=== PATIENT | female | born 1990 | race Caucasian/White ===

== ENCOUNTER 2021-04-10 08:00 | Outpatient (CLI) | payer MEDICAID ==
[2021-04-10 20:54] LABS: BASOPHILS % (AUTO) 0.3 %; EOSINOPHILS # (AUTO) 0.2 10^3/uL (0.0-0.7); EOSINOPHILS % (AUTO) 2.7 %; HCT - HEMATOCRIT 44.1 % (37.0-47.0); HGB - HEMOGLOBIN 14.1 g/dL (12.0-16.0); LYMPHOCYTES # (AUTO) 2.7 10^3/uL (1.5-3.5); LYMPHOCYTES % (AUTO) 33.8 %; MEAN CORPUSCULAR HEMOGLOBIN 28.3 pg (27.0-31.0); MEAN CORPUSCULAR VOLUME 88.6 fL (81.0-99.0); MEAN PLATELET VOLUME 10.6 fL (7.9-10.8); MONOCYTES # (AUTO) 0.5 10^3/uL (0.0-1.0); MONOCYTES % (AUTO) 6.6 %; NEUTROPHILS # (AUTO) 4.4 10^3/uL (1.5-6.6); NEUTROPHILS % (AUTO) 56.3 %; PLT - PLATELET COUNT 303 10^3/uL (130-450); RED BLOOD COUNT 4.98 10^6/uL (4.20-5.40); RED CELL DISTRIBUTION WIDTH 13.4 % (12.0-15.0); WHITE BLOOD COUNT 7.8 x10^3/uL (4.8-10.8)
[2021-04-10 21:13] LABS: ALBUMIN 4.1 g/dL (3.2-5.5); ALBUMIN/GLOBULIN RATIO 1.4 (1.0-2.2); BILIRUBIN,TOTAL 0.6 mg/dL (0.2-1.0); CALCIUM 9.1 mg/dL (8.5-10.3); CREATININE 0.8 mg/dL (0.4-1.0); POTASSIUM 4.1 mmol/L (3.5-5.0)
[2021-04-10 21:29] LABS: THYROID STIMULATING HORMONE 1.53 uIU/mL (0.34-5.60)
== END 2021-04-10 23:59 ==
LOC: LAB.N 08:00
PROVIDERS: ATTEND Family Medicine
DX: R20.2 Paresthesia of skin (principal)
CPT/HCPCS: 36415; 80053; 84443; 85025

== ENCOUNTER 2021-05-04 14:23 | Outpatient (CLI) | payer MEDICAID | END 2021-05-04 23:59 | disposition home or self-care (01) | LOC: LAB.N 14:23 | PROVIDERS: ATTEND Family Medicine | DX: U07.1 COVID-19 (principal) | CPT/HCPCS: 87275; 87276 ==

== ENCOUNTER 2021-08-20 08:00 | Outpatient (CLI) | payer MEDICAID ==
--- NOTE | 2021-08-21 09:46 | XRAY Report ---
PROCEDURE: Calcaneus RT INDICATIONS: R HEEL PX TECHNIQUE: Two views of the calcaneus were acquired. COMPARISON: None FINDINGS: Bones: No fractures or dislocations. No suspicious bony lesions. Soft tissues: No suspicious calcifications. Achilles tendon appears normal. IMPRESSION: No fracture. No osseous lesion. If symptoms and/or clinical concern for pathology persists, further a ssessment with repeat plain film radiographs (7-10 days) or advanced imaging (CT, MR, bone scan) shou ld be considered. Reviewed by: Allison Calloway MD, PhD on 08/21/2021 9:45 AM PDT Approved by: Allison Calloway MD, PhD on 08/21/2021 9:45 AM PDT Station ID: [id number]
== END 2021-08-20 23:59 | disposition home or self-care (01) ==
LOC: DI.N 08:00
PROVIDERS: ATTEND Registered Nurse
DX: M79.671 Pain in right foot (principal)

== ENCOUNTER 2021-08-22 08:00 | Outpatient (CLI) | payer MEDICAID ==
--- NOTE | 2021-08-22 15:26 | XRAY Report ---
PROCEDURE: Foot 3 View RT INDICATIONS: RIGHT FOOT PAIN TECHNIQUE: 3 views of the foot were acquired. COMPARISON: None FINDINGS: Bones: No fractures or dislocations. No suspicious bony lesions. Soft tissues: No tibiotalar joint effusion. Achilles tendon appears normal. IMPRESSION: No acute finding. Reviewed by: Harsh Lane MD on 08/22/2021 3:24 PM PDT Approved by: Harsh Lane MD on 08/22/2021 3:24 PM PDT Station ID: [id number]
== END 2021-08-22 23:59 | disposition home or self-care (01) ==
LOC: DI.N 08:00
PROVIDERS: ATTEND Physician Assistant Medical
DX: M72.2 Plantar fascial fibromatosis (principal)

== ENCOUNTER 2022-07-09 11:24 | Emergency (ER) | payer MEDICAID ==
[2022-07-09 11:39] VITALS: BP 133/92
--- NOTE | 2022-07-09 12:10 | ED Physician Documentation ---
History of Present Illness - Stated complaint Stated Complaint: RASH/MED REFIL - Chief complaint Chief Complaint: Allergic Rx - History obtained from History obtained from: Patient - History of Present Illness Timing: Today Pain level max: 0 Pain level now: 0 - Additonal information Additional information: Patient is a 31-year-old female who presents to the emergency department stating that she is out of her clonazepam. Requesting a refill. She had been getting it refilled from the walk-in clinic. She has an appointment with a new provider at [facility] on 07/18.She takes clonazepam 0.5 mg p.o. twice daily. Patient also states that she has a rash on her abdomen. She states that it is itchy and similar to patches of eczema or hives that she usually gets. Nothing makes it better or worse. No new soaps, lotions, detergents or medications. Review of Systems Constitutional: denies: Fever, Chills GI: denies: Vomiting, Diarrhea : denies: Now EGA Musculoskeletal: denies: Neck pain, Back pain PD PAST MEDICAL HISTORY - Past Medical History Past Medical History: Yes Psych: Anxiety Derm: Eczema - Present Medications Home Medications: Ambulatory Orders Medication Instructions Recorded Confirmed Triamcinolone 0.1% Cream [Kenalog 1 applic TOP BID PRN #15 gm 07/09/22 0.1% Cream] clonazePAM [KlonoPIN] 0.5 mg PO BID PRN #28 tablet 07/09/22 - Allergies Allergies/Adverse Reactions: Allergies Allergy/AdvReac Type Severity Reaction Status Date / Time sumatriptan [From Imitrex] Allergy Headache Verified 07/09/22 11:40 - Living Situation Living Situation: reports: With family Living Arrangement: reports: At home - Social History Does the pt have substance abuse?: No - Family History Family history: reports: Non contributory PD ED PE NORMAL - Vitals Vital signs reviewed: Yes - General General: Alert and oriented X 3, No acute distress - HEENT HEENT: PERRL, Moist mucous membranes - Neck Neck: Supple, no meningeal sign - Cardiac Cardiac: RRR, Strong equal pulses - Respiratory Respiratory: No respiratory distress, Clear bilaterally - Abdomen Abdomen: Soft, Non tender, Non distended - Derm Derm: Warm and dry, Other (Small areas of light pink urticarial appearing patches on her abdomen.) - Neuro Neuro: Alert and oriented X 3 - Psych Psych: Normal mood, Normal affect Results - Vitals Vitals: Vital Signs - 24 hr 07/09/22 07/09/22 07/09/22 11:35 11:58 12:04 Temperature 36.5 C Heart Rate 75 Respiratory 14 16 16 Rate Blood Pressure 133/92 H O2 Saturation 100 07/09/22 12:18 Temperature Heart Rate Respiratory 16 Rate Blood Pressure O2 Saturation Oxygen O2 Source Room air PD Medical Decision Making - ED course Complexity details: considered differential, d/w patient ED course: Patient with urticaria on the abdomen. Unclear etiology. Patient states that topical steroids usually help, we will prescribe this for her. 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 We will refill a small amount of her clonazepam to get her to her appointment next week. Patient is well-appearing, nontoxic. Afebrile. No evidence of anaphylaxis or sepsis. Patient counseled regarding signs and symptoms for which I believe and urgent re-evaluation would be necessary. Patient with good understanding of and agreement to plan and is comfortable going home at this time This document was made in part using voice recognition software. While efforts are made to proofread this document, sound alike and grammatical errors may occur. Departure - Departure Disposition: 01 Home, Self Care Clinical Impression: Medication refill, Urticaria Condition: Good Instructions: ED Urticaria Follow-Up: your,doctor on 07/18 as scheduled [Other] Prescriptions: Triamcinolone 0.1% Cream [Kenalog 0.1% Cream] 1 applic TOP BID PRN #15 gm PRN Reason: rash clonazePAM [KlonoPIN] 0.5 mg PO BID PRN #28 tablet PRN Reason: Anxiety Comments: Please follow-up with your doctor for further refills of your medications. Please return if you worsen. Your prescriptions were sent to [facility] in [place]. Discharge Date/Time: 07/09/22 12:19
== END 2022-07-09 12:19 | disposition home or self-care (01) ==
LOC: ED 11:24
DX: Z76.0 Encounter for issue of repeat prescription (principal); L50.9 Urticaria, unspecified
CPT/HCPCS: 99282; 99283

== ENCOUNTER 2022-12-25 04:25 | Emergency (ER) | payer MEDICAID ==
--- NOTE | 2022-12-25 04:53 | ED Physician Documentation ---
History of Present Illness - Stated complaint Stated Complaint: CHEST PX - Chief complaint Chief Complaint: Cardiac - History obtained from History obtained from: Patient - Additonal information Additional information: 32yF, previously healthy aside from history of anxiety and on progestin only OCP, p/w pleuritic chest pain waking her from sleep around 2AM. pain is also worse with stretching. denies nausea, leg swelling, fever, cough, soa, diaphoresis. +daily smoker. no prior hx PE or DVT. denies FH MO. 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 : None HEENT: None Psych: Anxiety Musculoskeletal: None Derm: Eczema - Past Surgical History Past Surgical History: No - Present Medications Home Medications: Ambulatory Orders Medication Instructions Recorded Confirmed Triamcinolone 0.1% Cream [Kenalog 1 applic TOP BID PRN #15 gm 07/09/22 0.1% Cream] clonazePAM [KlonoPIN] 0.5 mg PO BID PRN #28 tablet 07/09/22 - Allergies Allergies/Adverse Reactions: Allergies Allergy/AdvReac Type Severity Reaction Status Date / Time sumatriptan [From Imitrex] Allergy Headache Verified 07/09/22 11:40 - Social History Does the pt smoke?: No Smoking Status: Never smoker Does the pt drink ETOH?: No Does the pt have substance abuse?: No - Immunizations Immunizations are current?: Yes - POLST Patient has POLST: No PD ED PE NORMAL - Vitals Vital signs reviewed: Yes - General General: Alert and oriented X 3, No acute distress, Well developed/nourished - HEENT HEENT: Atraumatic, PERRL, EOMI, Moist mucous membranes - Neck Neck: Supple, no meningeal sign - Cardiac Cardiac: RRR - Respiratory Respiratory: No respiratory distress, Clear bilaterally - Derm Derm: Normal color, Warm and dry - Extremities Extremities: No deformity - Neuro Neuro: Alert and oriented X 3 - Psych Psych: Normal mood, Normal affect Results - Vitals Vitals: Vital Signs - 24 hr 12/25/22 12/25/22 12/25/22 04:33 04:45 06:07 Temperature 36.6 C Heart Rate 75 67 67 Respiratory 18 16 16 Rate Blood Pressure 133/84 H 126/76 117/70 O2 Saturation 100 98 98 Oxygen O2 Source Room air - EKG (time done) 2272 EKG releavant findings:: EKG personally interpreted by author of this note. Relevant findings are: Rate: Rate (enter#) (78) Rhythm: NSR [place]: Normal Intervals: Normal CO QRS: Normal Ischemia: Normal ST segments - Labs Labs: Laboratory Tests 12/25/22 12/25/22 12/25/22 04:40 04:40 05:17 WBC 8.6 RBC 4.85 Hgb 12.9 Hct 40.5 MCV 83.5 MCH 26.6 L MCHC 31.9 L RDW 14.2 Plt Count 311 MPV 9.6 Neut # (Auto) 5.2 Lymph # (Auto) 2.5 [place] # (Auto) 0.6 Eos # (Auto) 0.3 Baso # (Auto) 0.0 Absolute Nucleated RBC 0.00 Nucleated RBC % 0.0 D-Dimer 213.1 Sodium 137 Potassium 3.3 L Chloride 105 Carbon Dioxide 26 Anion Gap 6.0 BUN 13 Creatinine 0.8 Estimated GFR (MDRD) 82 L Glucose 80 Calcium 8.9 Total Bilirubin 0.4 AST 13 ALT 13 Alkaline Phosphatase 88 Troponin I High Sens < 2.3 L Total Protein 6.4 Albumin 4.0 Globulin 2.4 Albumin/Globulin Ratio 1.7 Lipase 53 PD Medical Decision Making - ED course ED course: 32yF presents to the ED with chest pain. DDX includes costochondritis, pneumonia, ptx, mi, pe, dissection. the latter three are unlikely given low risk profile and well appearing. patient is essentially perc negative except for progestin only ocp. d-dimer ordered to r/o PE. CXR ordered to evaluate these other potential conditions. Negative d-dimer, cbc, abdominal panel, trop. CXR benign per my wet read. Plan to f/u outpatient pcp routinely. HEART score 1 (smoker). return precautions given. Departure - Departure Disposition: 01 Home, Self Care Clinical Impression: Chest pain Condition: Good Instructions: ED Chest Pain NonCardiac Comments: You were seen in the emergency department for chest pain. Your workup uncovered no emergent cause for your symptoms. Please follow-up with your primary care provider and return to the emergency department if you have any new or worsening symptoms or other concerns. Forms: PCP List
[2022-12-25 05:15] LABS: BASOPHILS % (AUTO) 0.2 %; EOSINOPHILS # (AUTO) 0.3 10^3/uL (0.0-0.7); EOSINOPHILS % (AUTO) 3.4 %; HCT - HEMATOCRIT 40.5 % (37.0-47.0); HGB - HEMOGLOBIN 12.9 g/dL (12.0-16.0); LYMPHOCYTES # (AUTO) 2.5 10^3/uL (1.5-3.5); LYMPHOCYTES % (AUTO) 29.2 %; MEAN CORPUSCULAR HEMOGLOBIN 26.6 pg (27.0-31.0); MEAN CORPUSCULAR HGB CONC 31.9 g/dL (32.0-36.0); MEAN CORPUSCULAR VOLUME 83.5 fL (81.0-99.0); MEAN PLATELET VOLUME 9.6 fL (7.9-10.8); MONOCYTES # (AUTO) 0.6 10^3/uL (0.0-1.0); MONOCYTES % (AUTO) 6.7 %; NEUTROPHILS # (AUTO) 5.2 10^3/uL (1.5-6.6); NEUTROPHILS % (AUTO) 60.1 %; PLT - PLATELET COUNT 311 10^3/uL (130-450); RED BLOOD COUNT 4.85 10^6/uL (4.20-5.40); RED CELL DISTRIBUTION WIDTH 14.2 % (12.0-15.0); WHITE BLOOD COUNT 8.6 x10^3/uL (4.8-10.8)
[2022-12-25 05:29] LABS: ALBUMIN/GLOBULIN RATIO 1.7 (1.0-2.2); ALKALINE PHOSPHATASE 88 IU/L (42-121); ALT ALANINE AMINOTRANSFERASE 13 IU/L (10-60); AST ASPARTATE AMINOTRANSFERASE 13 IU/L (10-42); BILIRUBIN,TOTAL 0.4 mg/dL (0.2-1.0); BUN - BLOOD UREA NITROGEN 13 mg/dL (6-20); CALCIUM 8.9 mg/dL (8.5-10.3); CARBON DIOXIDE - CO2 26 mmol/L (21-32); CHLORIDE 105 mmol/L (101-111); CREATININE 0.8 mg/dL (0.6-1.3); GFR - MDRD 82 (>89); GLUCOSE 80 mg/dL (74-104); LIPASE 53 U/L (11-82); POTASSIUM 3.3 mmol/L (3.5-4.5); SODIUM 137 mmol/L (135-145); TOTAL PROTEIN 6.4 g/dL (6.4-8.9)
[2022-12-25 05:35] LABS: TROPONIN I HIGH SENSITIVITY < 2.3 ng/L (2.3-14.8)
[2022-12-25] MEDS ORDERED: POTASSIUM CHLORIDE 20 MEQ/15 ML UDC PO STA (06:12)
[2022-12-25 06:44] VITALS: BP 118/80; O2SAT 97
--- NOTE | 2022-12-25 08:53 | XRAY Report ---
PROCEDURE: Chest 1 View X-Ray INDICATIONS: Chest Pain TECHNIQUE: One view of the chest was acquired. COMPARISON: None. FINDINGS: Surgical changes and devices: None. Lungs and pleura: No pleural effusions or pneumothorax. Lungs are clear. Mediastinum: Mediastinal contours appear normal. Heart size is normal. Bones and chest wall: No suspicious bony lesions. Overlying soft tissues appear unremarkable. IMPRESSION: No acute cardiopulmonary process. Findings are concordant with preliminary interpretation provided by [facility]. Reviewed by: Richy Watts on 12/25/2022 8:52 AM PDT Approved by: Richy Watts on 12/25/2022 8:52 AM PDT Station ID: [id number]
== END 2022-12-25 06:43 | disposition home or self-care (01) ==
LOC: ED 04:25
DX: R07.9 Chest pain, unspecified (principal)
CPT/HCPCS: 36415; 71045; 80053; 83690; 84484; 85025; 85379; 93005; 99283; 99284; A9270

== ENCOUNTER 2023-03-20 10:30 | Outpatient (CLI) | payer MEDICAID ==
[2023-03-20 17:58] LABS: BASOPHILS % (AUTO) 0.3 %; EOSINOPHILS # (AUTO) 0.2 10^3/uL (0.0-0.7); EOSINOPHILS % (AUTO) 3.2 %; HCT - HEMATOCRIT 41.7 % (37.0-47.0); HGB - HEMOGLOBIN 12.9 g/dL (12.0-16.0); LYMPHOCYTES # (AUTO) 2.4 10^3/uL (1.5-3.5); LYMPHOCYTES % (AUTO) 35.7 %; MEAN CORPUSCULAR HEMOGLOBIN 26.8 pg (27.0-31.0); MEAN CORPUSCULAR HGB CONC 30.9 g/dL (32.0-36.0); MEAN CORPUSCULAR VOLUME 86.7 fL (81.0-99.0); MEAN PLATELET VOLUME 10.2 fL (7.9-10.8); MONOCYTES # (AUTO) 0.4 10^3/uL (0.0-1.0); MONOCYTES % (AUTO) 6.5 %; NEUTROPHILS # (AUTO) 3.7 10^3/uL (1.5-6.6); PLT - PLATELET COUNT 292 10^3/uL (130-450); RED BLOOD COUNT 4.81 10^6/uL (4.20-5.40); RED CELL DISTRIBUTION WIDTH 14.7 % (12.0-15.0); WHITE BLOOD COUNT 6.8 x10^3/uL (4.8-10.8)
[2023-03-20 18:18] LABS: ALBUMIN 4.5 g/dL (3.2-5.5); BILIRUBIN,TOTAL 0.5 mg/dL (0.2-1.0); CALCIUM 9.3 mg/dL (8.5-10.3); CREATININE 0.7 mg/dL (0.6-1.3); POTASSIUM 3.7 mmol/L (3.5-4.5); TOTAL PROTEIN 6.7 g/dL (6.4-8.9)
[2023-03-20 18:26] LABS: THYROID STIMULATING HORMONE 3.02 uIU/mL (0.34-5.60)
== END 2023-03-20 10:45 | disposition home or self-care (01) ==
LOC: LAB.N 10:30
PROVIDERS: ATTEND Physician Assistant Medical
DX: R42 Dizziness and giddiness (principal)
CPT/HCPCS: 36415; 80050; 82607; 82746; 83540; 84466

== ENCOUNTER 2023-03-29 15:11 | Emergency (ER) | payer MEDICAID ==
--- NOTE | 2023-03-29 16:15 | ED Physician Documentation ---
PD HPI HEENT - Stated complaint Stated Complaint: LT SD TOOTH ACHE - Chief complaint Chief Complaint: Heent - History obtained from History obtained from: Patient - History of Present Illness Timing - onset: How many days ago (2-3) Timing - duration: Days Timing - details: Gradual onset, Still present (has increased signifcantly today.) Location: Tooth (left upper tooth had sigificant caries and was removed with temporary crown/filling that had been doing well. few days of pain and pressure in that area. No draiange. Severe pain has developed today.) Associated symptoms: No: Fever, Congestion, Swollen nodes Recently seen: Other (dentist [facility] where had some cavities repaired and left upper area had filling material used to make sort of a crown piece. 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 : None HEENT: None Psych: Anxiety Musculoskeletal: None Derm: Eczema - Past Surgical History Past Surgical History: No - Present Medications Home Medications: Ambulatory Orders Medication Instructions Recorded Confirmed Triamcinolone 0.1% Cream [Kenalog 1 applic TOP BID PRN #15 gm 07/09/22 0.1% Cream] clonazePAM [KlonoPIN] 0.5 mg PO BID PRN #28 tablet 07/09/22 Meloxicam [Mobic] 7.5 mg PO BID 10 Days #20 tablet 03/29/23 Oxycodone HCl/Acetaminophen 1 each PO Q6H PRN #14 tablet 03/29/23 [Percocet 5-325 mg Tablet] clindamycin HCL [Clindamycin HCl] 300 mg PO TID 5 Days #15 cap 03/29/23 - Allergies Allergies/Adverse Reactions: Allergies Allergy/AdvReac Type Severity Reaction Status Date / Time sumatriptan [From Imitrex] Allergy Headache Verified 07/09/22 11:40 - Social History Does the pt smoke?: No Smoking Status: Never smoker Does the pt drink ETOH?: No Does the pt have substance abuse?: No - Immunizations Immunizations are current?: Yes - POLST Patient has POLST: No PD ED PE NORMAL - Vitals Vital signs reviewed: Yes - General General: No acute distress - HEENT HEENT: Ears normal, Moist mucous membranes, Pharynx benign. No: Dentition benign (filling noted at left upper molar that is hurting. No gum swelling. Very tender to percussion on the tooth. ) - Neck Neck: Supple, no meningeal sign, No adenopathy - Cardiac Cardiac: RRR, No murmur - Respiratory Respiratory: Clear bilaterally Results - Vitals Vitals: Vital Signs - 24 hr 03/29/23 03/29/23 15:24 16:47 Temperature 36.2 C L 36.8 C Heart Rate 77 67 Respiratory 20 18 Rate Blood Pressure 143/88 H 133/90 H O2 Saturation 100 99 Oxygen O2 Source Room air Procedures - Regional nerve block - Minor Nerve block site: Infraorbital Right / left: Left Nerve block anesthesia: Marcaine 0.5% Nerve block aftercare: Excellent anesthesia, Patient tolerated well, No complications PD Medical Decision Making - ED course Complexity details: considered differential (likely having some pressure or movement of the temp filling. Does not appear obviously infected but that would be common cause of abrupt siuch pain. ), d/w patient Departure - Departure Disposition: Home, Self Care Clinical Impression: Tooth pain Condition: Stable Record reviewed to determine appropriate education?: Yes Instructions: ED Tooth Pain Follow-Up: [facility] [Provider Group] Prescriptions: clindamycin HCL [Clindamycin HCl] 300 mg PO TID 5 Days #15 cap Meloxicam [Mobic] 7.5 mg PO BID 10 Days #20 tablet Oxycodone HCl/Acetaminophen [Percocet 5-325 mg Tablet] 1 each PO Q6H PRN #14 tablet PRN Reason: pain Comments: There is not an obvious sign of infection at the tooth without any swelling or fluctuance or such but still the concern would be the early development of an infection. I would have you take clindamycin as directed. Stop the cephalexin that you are currently on. It may be inflammatory and there could be some air pressure or trapped fluid or such underneath the feeling. Follow-up with the [facility] clinic for them to reevaluate. Call tomorrow for an appointment. We would want to treat with an anti-inflammatory as well. I wrote for meloxicam twice daily with food for the next week or so. Add Tylenol 500 to 650 mg 4 times daily if needed for pain. I also prescribed oxycodone/acetaminophen if needed for worse pain. We did do a dental block here with a long acting anesthetic. Hopefully this will last at least until tomorrow morning. I sent your prescriptions to your preferred pharmacy. I am prescribing a short course of narcotic pain medication for you. These are potentially dangerous and addictive medications that should be used carefully. These medications may constipate you. Take an [id number] stool softener such as docusate twice daily with plenty of water while taking these medications. If you go 24 hours without a bowel movement, take [id number] MiraLAX, per package instructions. Do not drink or drive while taking these medications. If you received narcotic or sedating medications while in the emergency department do not drive for 24 hours. Store this medication in a safe, secure place and out of reach of children. It is a violation of federal law to give or sell this medication to another person or to use in a manner other than prescribed. The ED will not refill narcotic prescriptions, including prescriptions lost or stolen. You can dispose of unwanted medications at the [facility]'s office or at several pharmacies such as [facility]. Forms: PCP List Discharge Date/Time: 03/29/23 16:48
[2023-03-29] MEDS ORDERED: NAPROXEN 250 MG TABLET PO STA (16:24)
[2023-03-29] MEDS ORDERED: CLINDAMYCIN 150 MG CAPSULE PO STA (16:24)
[2023-03-29 16:56] VITALS: BP 133/90; O2SAT 99
== END 2023-03-29 16:48 | disposition home or self-care (01) ==
LOC: ED 15:11
DX: K08.89 Other specified disorders of teeth and supporting structures (principal); Z79.899 Other long term (current) drug therapy
CPT/HCPCS: 64400; 99283

== ENCOUNTER 2023-05-15 13:47 | Outpatient (CLI) | payer MEDICAID ==
--- NOTE | 2023-05-15 20:04 | XRAY Report ---
PROCEDURE: Shoulder 2+V LT INDICATIONS: OTHER SPRAIN OF LEFT SHOULDER JOINT TECHNIQUE: 3 views of the shoulder were acquired. COMPARISON: None FINDINGS: Bones: No fractures or dislocations. No suspicious bony lesions. Visualized ribs appear intact. Soft tissues: No suspicious soft tissue calcifications. IMPRESSION: Unremarkable shoulder radiographs Reviewed by: Neil Mendoza MD on 05/15/2023 7:03 PM [place] Approved by: Neil Mendoza MD on 05/15/2023 7:03 PM [place] Station ID: [id number]
== END 2023-05-15 23:59 | disposition home or self-care (01) ==
LOC: DI.N 13:47
PROVIDERS: ATTEND Physician Assistant
DX: S43.492A Other sprain of left shoulder joint, initial encounter (principal)

== ENCOUNTER 2023-05-26 10:38 | Emergency (ER) | payer MEDICAID, OTHER ==
[2023-05-26 11:14] VITALS: BP 121/70; O2SAT 100
--- NOTE | 2023-05-26 11:32 | ED Physician Documentation ---
History of Present Illness - Stated complaint Stated Complaint: MED REFILL - Chief complaint Chief Complaint: General - History obtained from History obtained from: Patient - History of Present Illness Timing: Today Pain level max: 0 Pain level now: 0 - Additonal information Additional information: 32-year-old female presents to the emergency department stating that she is out of her clonazepam. She states that she only uses it a few times per year, last fill was July 2022. She was seeing a doctor in [place] but states that she received a letter that he would no longer be her doctor and she is awaiting an appointment in [place]. She has her other medications. She is not suicidal or homicidal. Otherwise asymptomatic here. 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 : None HEENT: None Psych: Anxiety Musculoskeletal: None Derm: Eczema - Past Surgical History Past Surgical History: No - Present Medications Home Medications: Ambulatory Orders Medication Instructions Recorded Confirmed clonazePAM [KlonoPIN] 0.5 mg PO BID PRN #28 tablet 07/09/22 05/26/23 Citalopram [CeleXA] 30 mg PO DAILY 05/26/23 05/26/23 Famotidine [Acid-Pep] 20 mg PO DAILY 05/26/23 05/26/23 Norethindrone 0.35 mg PO DAILY 05/26/23 05/26/23 clonazePAM [KlonoPIN] 0.5 mg PO BID PRN #10 tablet 05/26/23 - Allergies Allergies/Adverse Reactions: Allergies Allergy/AdvReac Type Severity Reaction Status Date / Time sumatriptan [From Imitrex] Allergy Headache Verified 05/26/23 10:54 - Social History Does the pt smoke?: Yes Smoking Status: Current every day smoker Does the pt drink ETOH?: No Does the pt have substance abuse?: Yes Substance Use and Type: Marijuana - Immunizations Immunizations are current?: Yes - POLST Patient has POLST: No PD ED PE NORMAL - Vitals Vital signs reviewed: Yes - General General: Alert and oriented X 3, No acute distress - HEENT HEENT: PERRL, Moist mucous membranes - Neck Neck: Supple, no meningeal sign - Respiratory Respiratory: No respiratory distress - Derm Derm: Warm and dry - Neuro Neuro: Alert and oriented X 3 - Psych Psych: Normal mood, Normal affect Results - Vitals Vitals: Vital Signs - 24 hr 05/26/23 10:49 Temperature 35.8 C L Heart Rate 79 Respiratory 16 Rate Blood Pressure 121/70 O2 Saturation 100 Oxygen O2 Source Room air PD Medical Decision Making - ED course Complexity details: reviewed old records, considered differential, d/w patient ED course: Patient requesting a small refill of clonazepam, this was given. I did review her prescribing history with no red flags. Patient is not suicidal or homicidal. No emergency medical condition at this time. Patient counseled regarding signs and symptoms for which I believe and urgent re-evaluation would be necessary. Patient with good understanding of and agreement to plan and is comfortable going home at this time This document was made in part using voice recognition software. While efforts are made to proofread this document, sound alike and grammatical errors may occur. Departure - Departure Disposition: 01 Home, Self Care Clinical Impression: Anxiety Condition: Good Instructions: ED Panic Attack Follow-Up: your,doctor in 1 week [Other] Prescriptions: clonazePAM [KlonoPIN] 0.5 mg PO BID PRN #10 tablet PRN Reason: Anxiety Comments: Your prescription was sent to [facility] in [place]. Please follow-up with your doctor for further care and further refills. Please return if you worsen. Forms: PCP List Discharge Date/Time: 05/26/23 11:36
== END 2023-05-26 11:36 | disposition home or self-care (01) ==
LOC: ED 10:38
DX: Z76.0 Encounter for issue of repeat prescription (principal); F17.200 Nicotine dependence, unspecified, uncomplicated
CPT/HCPCS: 99281; 99282

== ENCOUNTER 2023-09-17 13:50 | Emergency (ER) | payer SELFPAY ==
[2023-09-17 14:20] LABS: BASOPHILS % (AUTO) 0.3 %; EOSINOPHILS # (AUTO) 0.2 10^3/uL (0.0-0.7); EOSINOPHILS % (AUTO) 2.7 %; HCT - HEMATOCRIT 41.1 % (37.0-47.0); HGB - HEMOGLOBIN 12.8 g/dL (12.0-16.0); LYMPHOCYTES # (AUTO) 2.5 10^3/uL (1.5-3.5); LYMPHOCYTES % (AUTO) 31.9 %; MEAN CORPUSCULAR HEMOGLOBIN 26.3 pg (27.0-31.0); MEAN CORPUSCULAR HGB CONC 31.1 g/dL (32.0-36.0); MEAN CORPUSCULAR VOLUME 84.6 fL (81.0-99.0); MEAN PLATELET VOLUME 9.9 fL (7.9-10.8); MONOCYTES # (AUTO) 0.4 10^3/uL (0.0-1.0); MONOCYTES % (AUTO) 5.1 %; NEUTROPHILS # (AUTO) 4.7 10^3/uL (1.5-6.6); NEUTROPHILS % (AUTO) 59.7 %; PLT - PLATELET COUNT 288 10^3/uL (130-450); RED BLOOD COUNT 4.86 10^6/uL (4.20-5.40); RED CELL DISTRIBUTION WIDTH 13.8 % (12.0-15.0); WHITE BLOOD COUNT 7.8 x10^3/uL (4.8-10.8)
--- NOTE | 2023-09-17 14:31 | XRAY Report ---
PROCEDURE: Chest 1V INDICATIONS: Chest pain TECHNIQUE: One view of the chest was acquired. COMPARISON: Chest x-ray 04/26/2022 FINDINGS: Surgical changes and devices: None. Lungs and pleura: No pleural effusions or pneumothorax. Lungs are clear. Mediastinum: Mediastinal contours appear normal. Heart size is normal. Bones and chest wall: No suspicious bony lesions. Overlying soft tissues appear unremarkable. IMPRESSION: No acute cardiopulmonary process. Reviewed by: Sanjuana Yepez MD on 09/17/2023 2:30 PM PDT Approved by: Sanjuana Yepez MD on 09/17/2023 2:30 PM PDT Station ID: [id number]
--- NOTE | 2023-09-17 14:31 | ED Physician Documentation ---
PD HPI CHEST PAIN - Stated complaint Stated Complaint: CHEST TIGHTNESS,DIZZINESS - Chief complaint Chief Complaint: Cardiac - History obtained from History obtained from: Patient - Additional information Additional information: 32-year-old female with a history of anxiety and panic attacks previously on as needed clonazepam presented with 2 days of mild chest pressure in the center of the chest, nonradiating nonexertional, mild shortness of breath, no cough or URI symptoms. She states she believes this was triggered by seeing her coworker have a seizure and having to call EMS 2 days ago when her symptoms started. The patient has been quite anxious since then and has been out of her clonazepam. She states she gets a panic attack around every 2 weeks or so but feels it is much more well-controlled than it previously was. She used to use anxiolytics frequently but now uses very sparingly. She denies any other drug or alcohol use. She does smoke, denies any asthma history, no recent immobility or surgeries, no history of DVT or PE, no lower extremity swelling. Review of Systems Constitutional: reports: Reviewed and negative Eyes: reports: Reviewed and negative Ears: reports: Reviewed and negative Nose: reports: Reviewed and negative Throat: reports: Reviewed and negative Cardiac: reports: Chest pain / pressure Respiratory: reports: Dyspnea GI: reports: Reviewed and negative : reports: Reviewed and negative Skin: reports: Reviewed and negative Musculoskeletal: reports: Reviewed and negative Neurologic: reports: Reviewed and negative Psychiatric: reports: Anxiety. 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 HEENT: None Psych: Anxiety Musculoskeletal: None Derm: Eczema - Past Surgical History Past Surgical History: No - Present Medications Home Medications: Ambulatory Orders Medication Instructions Recorded Confirmed clonazePAM [KlonoPIN] 0.5 mg PO BID PRN #28 tablet 07/09/22 05/26/23 Citalopram [CeleXA] 30 mg PO DAILY 05/26/23 05/26/23 Famotidine [Acid-Pep] 20 mg PO DAILY 05/26/23 05/26/23 Norethindrone 0.35 mg PO DAILY 05/26/23 05/26/23 clonazePAM [KlonoPIN] 0.5 mg PO BID PRN #10 tablet 05/26/23 clonazePAM [Clonazepam] 0.5 mg PO DAILY PRN #3 tab 09/17/23 - Allergies Allergies/Adverse Reactions: Allergies Allergy/AdvReac Type Severity Reaction Status Date / Time sumatriptan [From Imitrex] Allergy Headache Verified 09/17/23 14:00 - Social History Does the pt smoke?: No Smoking Status: Never smoker Does the pt drink ETOH?: No Does the pt have substance abuse?: No - Immunizations Immunizations are current?: Yes - POLST Patient has POLST: No PD ED PE NORMAL - Vitals Vital signs reviewed: Yes - General General: Alert and oriented X 3, No acute distress, Well developed/nourished - HEENT HEENT: Atraumatic, Moist mucous membranes - Neck Neck: Supple, no meningeal sign, No JVD - Cardiac Cardiac: RRR, No murmur, No gallop, No rub, Strong equal pulses - Respiratory Respiratory: No respiratory distress, Clear bilaterally - Abdomen Abdomen: Normal bowel sounds, Soft, Non tender, Non distended - Extremities Extremities: No edema, No calf tenderness / cord - Neuro Neuro: Alert and oriented X 3 Eye Opening: Spontaneous Motor: Obeys Commands Verbal: Oriented GCS Score: 15 - Psych Psych: Normal mood, Normal affect Results - Vitals Vitals: Vital Signs - 24 hr 09/17/23 13:57 Temperature 36.8 C Heart Rate 73 Respiratory 18 Rate Blood Pressure 135/80 H O2 Saturation 100 Oxygen O2 Source Room air - EKG (time done) No standard instances EKG releavant findings:: EKG personally interpreted by author of this note. Relevant findings are: Rate: Rate (enter#) (72) Rhythm: NSR Aptos: Normal Intervals: Normal LA QRS: Normal Ischemia: Normal ST segments Computer interpretation: Agree with computer - Labs Labs: Laboratory Tests 09/17/23 09/17/23 14:15 14:15 WBC 7.8 RBC 4.86 Hgb 12.8 Hct 41.1 MCV 84.6 MCH 26.3 L MCHC 31.1 L RDW 13.8 Plt Count 288 MPV 9.9 Neut # (Auto) 4.7 Lymph # (Auto) 2.5 Hale # (Auto) 0.4 Eos # (Auto) 0.2 Baso # (Auto) 0.0 Absolute Nucleated RBC 0.00 Nucleated RBC % 0.0 Sodium 138 Potassium 3.7 Chloride 102 Carbon Dioxide 30 Anion Gap 6.0 BUN 10 Creatinine 0.8 Estimated GFR (MDRD) 82 L Glucose 91 Calcium 9.5 Total Bilirubin 0.6 AST 13 ALT 13 Alkaline Phosphatase 86 Troponin I High Sens < 2.3 L Total Protein 6.6 Albumin 4.3 Globulin 2.3 Albumin/Globulin Ratio 1.9 Lipase 29 - Rads (name of study) No standard instances Relevant Findings:: Final report received PD Medical Decision Making - ED course Complexity details: reviewed results, re-evaluated patient, considered differential, d/w patient ED course: 32-year-old female presented stating she felt like she was having a panic attack, has a history of anxiety and prior panic attacks, previously on as needed clonazepam. Symptoms as per HPI. The patient is very well-appearing here on physical exam, afebrile nontoxic. Physical exam is very reassuring, low suspicion for ACS given normal EKG, troponin, reassuring lab work, her chest x- ray is unremarkable. She has no signs of asthma or COPD on exam, low suspicion for PE, negative PERC. I think this is likely secondary to anxiety, and I discussed long-term anxiety management with the patient but we will go 3 tablets of 0.5 mg clonazepam which patient has been on the past. She is cautioned on long-term use of this medication and to use this only if absolutely necessary. She states understanding discharged home in stable condition. Departure - Departure Disposition: 01 Home, Self Care Clinical Impression: Anxiety Condition: Good Instructions: ED Panic Attack Prescriptions: clonazePAM [Clonazepam] 0.5 mg PO DAILY PRN #3 tab PRN Reason: anxiety Comments: Your labs, x-ray and EKG are all reassuring today. Please use the anxiety medicine only if absolutely needed. It should not be used on a regular basis and can lead to habit formation and withdrawal. Please consider following up outpatient with counseling or your PCP. Forms: PCP List
[2023-09-17 14:34] LABS: ALBUMIN 4.3 g/dL (3.2-5.5); ALBUMIN/GLOBULIN RATIO 1.9 (1.0-2.2); ALKALINE PHOSPHATASE 86 IU/L (42-121); ALT ALANINE AMINOTRANSFERASE 13 IU/L (10-60); AST ASPARTATE AMINOTRANSFERASE 13 IU/L (10-42); BILIRUBIN,TOTAL 0.6 mg/dL (0.2-1.0); BUN - BLOOD UREA NITROGEN 10 mg/dL (6-20); CALCIUM 9.5 mg/dL (8.5-10.3); CARBON DIOXIDE - CO2 30 mmol/L (21-32); CHLORIDE 102 mmol/L (101-111); CREATININE 0.8 mg/dL (0.6-1.3); GFR - MDRD 82 (>89); GLUCOSE 91 mg/dL (74-104); LIPASE 29 U/L (11-82); POTASSIUM 3.7 mmol/L (3.5-4.5); SODIUM 138 mmol/L (135-145); TOTAL PROTEIN 6.6 g/dL (6.4-8.9)
[2023-09-17 14:40] LABS: TROPONIN I HIGH SENSITIVITY < 2.3 ng/L (2.3-14.8)
[2023-09-17 15:16] VITALS: BP 131/86; O2SAT 99
== END 2023-09-17 15:07 | disposition home or self-care (01) ==
LOC: ED 13:50
DX: F41.9 Anxiety disorder, unspecified (principal); Z79.899 Other long term (current) drug therapy
CPT/HCPCS: 36415; 80053; 83690; 84484; 85025; 93005; 99284

== ENCOUNTER 2023-09-23 14:39 | Emergency (ER) | payer SELFPAY ==
--- NOTE | 2023-09-23 14:59 | ED Physician Documentation ---
PD HPI URI - Stated complaint Stated Complaint: SOA,CONGESTION,COUGH,FEVER - Chief complaint Chief Complaint: Resp - Additional information Additional information: 32-year-old female with no pertinent past medical history presents emergency d epartment for productive cough, congestion and fever of 101 at home. Patient says that she is worried because she checked her pulse ox immediately after she woke up and noticed that the O2 sats was 89% and heart rate was up to 155. She immediately came to the emergency department. Patient denies any chest pain or shortness of breath at this point in time. Mild nausea no vomiting. 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 HEENT: None Psych: Anxiety Musculoskeletal: None Derm: Eczema - Past Surgical History Past Surgical History: No - Present Medications Home Medications: Ambulatory Orders Medication Instructions Recorded Confirmed clonazePAM [KlonoPIN] 0.5 mg PO BID PRN #28 tablet 07/09/22 05/26/23 Citalopram [CeleXA] 30 mg PO DAILY 05/26/23 05/26/23 Famotidine [Acid-Pep] 20 mg PO DAILY 05/26/23 05/26/23 Norethindrone 0.35 mg PO DAILY 05/26/23 05/26/23 clonazePAM [KlonoPIN] 0.5 mg PO BID PRN #10 tablet 05/26/23 clonazePAM [Clonazepam] 0.5 mg PO DAILY PRN #3 tab 09/17/23 - Allergies Allergies/Adverse Reactions: Allergies Allergy/AdvReac Type Severity Reaction Status Date / Time sumatriptan [From Imitrex] Allergy Headache Verified 09/23/23 14:46 - Social History Does the pt smoke?: No Smoking Status: Never smoker Does the pt drink ETOH?: No Does the pt have substance abuse?: No - Immunizations Immunizations are current?: Yes - POLST Patient has POLST: No PD ED PE NORMAL - Vitals Vital signs reviewed: Yes - General General: Alert and oriented X 3, No acute distress, Well developed/nourished - HEENT HEENT: Atraumatic, PERRL, Other (. Rhinorrhea) - Cardiac Cardiac: RRR, No murmur - Respiratory Respiratory: No respiratory distress, Clear bilaterally - Back Back: No CVA TTP Results - Vitals Vitals: Vital Signs - 24 hr 09/23/23 09/23/23 14:44 15:57 Temperature 36.2 C L 36.3 C L Heart Rate 101 H 101 H Respiratory 18 18 Rate Blood Pressure 133/88 H 153/94 H O2 Saturation 100 97 Oxygen O2 Source Room air - Labs Labs: Laboratory Tests 09/23/23 15:09 Nasal Adenovirus (PCR) NOT DETECTED Nasal B. parapertussis DNA (PCR) NOT DETECTED Nasal Coronavir 229E PCR NOT DETECTED Nasal Coronavir HKU1 PCR NOT DETECTED Nasal Coronavir NL63 PCR NOT DETECTED Nasal Coronavir OC43 PCR NOT DETECTED Nasal Enterovir/Rhinovir PCR DETECTED A Nasal Influenza B PCR NOT DETECTED Nasal Influenza A PCR NOT DETECTED Nasal Parainfluen 1 PCR NOT DETECTED Nasal Parainfluen 2 PCR NOT DETECTED Nasal Parainfluen 3 PCR NOT DETECTED Nasal Parainfluen 4 PCR NOT DETECTED Nasal RSV (PCR) NOT DETECTED Nasal B.pertussis DNA PCR NOT DETECTED Nasal C.pneumoniae (PCR) NOT DETECTED Casey Human Metapneumo PCR NOT DETECTED Nasal M.pneumoniae (PCR) NOT DETECTED Nasal SARS-CoV-2 (PCR) NOT DETECTED - Rads (name of study) Chest x-ray Relevant Findings:: Final report received, EMP independent interpretation of test, Other (No acute cardiopulmonary abnormalities.) PD Medical Decision Making - ED course ED course: 32-year-old female presents emergency department for upper respiratory infection symptoms. Chest x-ray was complete as patient reports to the triage nurse that she was having an episode of shortness of breath and a desaturation of 89% of room air oxygen at home on her home pulse ox. Vitals are very stable here she is maintaining room air with an O2 sat of 97 to 100% throughout entire ER visit. Respiratory swab was complete for further evaluation and patient tested positive for rhinovirus. Patient was told to continue managing her symptoms with [id number] medication such as Tylenol ibuprofen follow-up with primary care provider as needed chest x-ray does not show any pneumonia lungs are clear throughout no concerns of other acute cardiopulmonary abnormalities or findings. Safe for discharge return precautions given patient told to follow-up primary care provider as needed. She does smoke cigarettes she has not been able to smoke since has been starting to feel ill and she has been encouraged to stay away from cigarettes until she fully recovers if not indefinitely. Departure - Departure Disposition: 01 Home, Self Care Clinical Impression: Upper respiratory infection Instructions: ED Viral Syndrome Comments: Thank you for trusting us with your care I believe that you are experiencing symptoms of an upper respiratory infection. We have completed x-rays and not seeing any pneumonia or other abnormalities at this point in time. Go home rest drink plenty of fluids take Tylenol ibuprofen for any fevers and chills come back to the hospital if your fevers are lasting longer than 5 days I will call you if your respiratory results come back positive for anything. Wishing you a speedy recovery. Forms: PCP List Discharge Date/Time: 09/23/23 15:57
--- NOTE | 2023-09-23 15:46 | XRAY Report ---
PROCEDURE: Chest 2V INDICATIONS: Cough TECHNIQUE: 2 views of the chest were acquired. COMPARISON: 08/19/2023. FINDINGS: Surgical changes and devices: None. Lungs and pleura: No pleural effusions or pneumothorax. Lungs are clear. Mediastinum: Mediastinal contours appear normal. Heart size is normal. Bones and chest wall: No suspicious bony lesions. Overlying soft tissues appear unremarkable. IMPRESSION: No acute cardiopulmonary process. Reviewed by: Vel Kline MD on 09/23/2023 3:45 PM PDT Approved by: Vel Kline MD on 09/23/2023 3:45 PM PDT Station ID: [id number]
[2023-09-23 16:01] VITALS: BP 153/94; O2SAT 97
[2023-09-23 16:06] LABS: B. PARAPERTUSSIS- RESP PCR PAN NOT DETECTED; B. PERTUSSIS- RESP PCR PANEL NOT DETECTED; C. PNEUMONIAE- RESP PCR PANEL NOT DETECTED; CORONAVIRUS 229E-RESP PCR NOT DETECTED; CORONAVIRUS HKU1-RESP PCR NOT DETECTED; CORONAVIRUS NL63-RESP PCR NOT DETECTED; CORONAVIRUS OC43-RESP PCR NOT DETECTED; HUMAN METAPNEUMOVIRUS NOT DETECTED; INFLUENZA A- RESP PCR PANEL NOT DETECTED; INFLUENZA B - RESP PCR PANEL NOT DETECTED; M. PNEUMONIAE- RESP PCR PANEL NOT DETECTED; PARAINFLUENZA VIRUS 1 NOT DETECTED; PARAINFLUENZA VIRUS 2 NOT DETECTED; PARAINFLUENZA VIRUS 3 NOT DETECTED; PARAINFLUENZA VIRUS 4 NOT DETECTED; RHINOVIRUS/ENTEROVIRUS DETECTED; RSV- RESP PCR PANEL NOT DETECTED; SARS-CoV-2 -RESP PCR PANEL NOT DETECTED
== END 2023-09-23 15:57 | disposition home or self-care (01) ==
LOC: ED 14:39
DX: J06.9 Acute upper respiratory infection, unspecified (principal); B97.89 Other viral agents as the cause of diseases classified elsewhere; F17.210 Nicotine dependence, cigarettes, uncomplicated; Z20.818 Contact with and (suspected) exposure to other bacterial communicable diseases; Z20.822 Contact with and (suspected) exposure to COVID-19; Z20.828 Contact with and (suspected) exposure to other viral communicable diseases
CPT/HCPCS: 87633; 99283; 99284

== ENCOUNTER 2024-01-08 18:12 | Emergency (ER) | payer SELFPAY ==
[2024-01-08 18:26] VITALS: O2SAT 100
--- NOTE | 2024-01-08 18:46 | ED Physician Documentation ---
History of Present Illness - Stated complaint Stated Complaint: RT KNEE PX - Chief complaint Chief Complaint: Ext Problem - Additonal information Additional information: 33-year-old female with no pertinent past medical history presents emergency department for right knee pain. Patient says that she had a very normal day at work and as she was getting out of the car she started experiencing sudden onset right knee pain that was radiating to her calf. She has not taken any Tylenol ibuprofen and was worried that it was may be getting swollen no fevers or chills no history of injuries to this knee before she does have history of chronic knee pain issues in the past. 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 HEENT: None Psych: Anxiety Musculoskeletal: None Derm: Eczema - Past Surgical History Past Surgical History: No - Present Medications Home Medications: Ambulatory Orders Medication Instructions Recorded Confirmed clonazePAM [KlonoPIN] 0.5 mg PO BID PRN #28 tablet 07/09/22 05/26/23 Citalopram [CeleXA] 30 mg PO DAILY 05/26/23 05/26/23 Famotidine [Acid-Pep] 20 mg PO DAILY 05/26/23 05/26/23 Norethindrone 0.35 mg PO DAILY 05/26/23 05/26/23 clonazePAM [KlonoPIN] 0.5 mg PO BID PRN #10 tablet 05/26/23 clonazePAM [Clonazepam] 0.5 mg PO DAILY PRN #3 tab 09/17/23 - Allergies Allergies/Adverse Reactions: Allergies Allergy/AdvReac Type Severity Reaction Status Date / Time sumatriptan [From Imitrex] Allergy Headache Verified 01/08/24 18:15 - Social History Does the pt smoke?: No Smoking Status: Never smoker Does the pt drink ETOH?: No Does the pt have substance abuse?: No - Immunizations Immunizations are current?: Yes - POLST Patient has POLST: No PD ED PE NORMAL - Vitals Vital signs reviewed: Yes - General General: Alert and oriented X 3, No acute distress, Well developed/nourished - HEENT HEENT: Atraumatic, PERRL - Extremities Extremities: No deformity, No tenderness to palpate, No edema, No calf tenderness / cord - Psych Psych: Normal mood Results - Vitals Vitals: Vital Signs - 24 hr 01/08/24 01/08/24 18:15 20:42 Temperature 36.5 C Heart Rate 87 74 Respiratory 16 16 Rate Blood Pressure 126/90 H 120/83 H O2 Saturation 100 100 Oxygen O2 Source Room air - Rads (name of study) RLE US Relevant Findings:: Final report received, EMP independent interpretation of test, Other (no DVT or SVT) PD Medical Decision Making - ED course ED course: 33-year-old female presents emergency department for nontraumatic right knee pain. She is on control and she did have calf tenderness with palpation so we did complete a venous duplex to rule out the possibility of a DVT. Given that the pain was sudden onset she has not taken any Tylenol ibuprofen most lik ector this is just some sort of arthritic flareup or knee strain. Venous duplex was negative for DVT and Patient declined any Tylenol ibuprofen or Toradol here in the emergency department said that she would take some at home. At this point time patient is safe for discharge I did not see any unilateral leg swelling or knee swelling. She was able to ambulate without any difficulty told patient to follow-up with her primary care provider if no improvement of symptoms after the next 5 to 7 days. All questions answered patient is safe for discharge at this time. Departure - Departure Disposition: 01 Home, Self Care Clinical Impression: Right leg pain Instructions: ED AJ Comments: Thank you for trusting us with your care. We have ruled out the possibility of you having a blood clot in your right leg. Please fill with your primary care provider if pain persist after about a week alternate between Tylenol ibuprofen for pain and discomfort apply ice to sore areas for 20 minutes on 1 hour off. Please come back to the ER if you are having any worsening pain despite taking medication chest pain or shortness of breath. Forms: PCP List Discharge Date/Time: 01/08/24 20:43
[2024-01-08] MEDS: KETOROLAC 30 MG/ML VIAL IM STA (19:36)
[2024-01-08] MEDS: IBUPROFEN 600 MG TABLET PO STA (19:42)
--- NOTE | 2024-01-08 20:42 | Ultrasound Report ---
PROCEDURE: Duplex Ext Veins Right INDICATIONS: RLE d/o DVT, calf pain on control TECHNIQUE: Real-time imaging, as well as color and pulse Doppler interrogation, were performed of the lower extr emity deep veins from the inguinal ligament to the popliteal fossa. Attempted visualization of the ca lf veins was performed. COMPARISON: None. FINDINGS: The deep veins are normally compressible, and free of intraluminal thrombus. Color and pu lse Doppler demonstrate normal phasic intraluminal flow. There is normal augmentation response to di stal compression maneuver. Suspected moderate knee effusion measuring up to 7.3 x 5.1 cm IMPRESSION: No deep venous thrombosis of the visualized lower extremity. Reviewed by: Mickey Kaye MD on 01/08/2024 8:41 PM PDT Approved by: Mickey Kaye MD on 01/08/2024 8:41 PM PDT Station ID: [id number]
[2024-01-08 20:48] VITALS: BP 120/83
== END 2024-01-08 20:43 | disposition home or self-care (01) ==
LOC: ED 18:12
DX: M79.661 Pain in right lower leg (principal); Z79.3 Long term (current) use of hormonal contraceptives
CPT/HCPCS: 99283; 99284